=== PATIENT | male | born 1980 | race Caucasian/White ===

== ENCOUNTER 2016-12-29 22:27 | Inpatient (IN) ==
--- NOTE | 2016-12-29 22:52 | Emergency Department Note ---
Arrival - Arrival Chief Complaint: Abdominal / Flank Pain ED Nursing Triage Note: C/O RLQ abd pain/fever. onset this morning. Pt was seen at [facility] and transferred for further evaluation/admission for appendicitis. Pt was given Zosyn 3.375grams, Liter NS, Toradol, Morphine, Zofran and Tylenol Mode of Arrival: Stretcher Limitations: No Limitations Source: Patient Time Seen by Provider: 12/29/16 22:27 - History of Present Illness HPI Narrative: This 36-year-old white male presents with complaints of progressive right lower quadrant abdominal pain during the course of the morning of eventually precipitating his visit to [facility] where he was evaluated and found to have on CT acute appendicitis. Associated with that was a white count of 13, 300. The patient was subsequently transferred here for definitive therapy. Currently he rates his pain at 6 out of 10. He denies any nausea or vomiting. Currently he is medically stable. Onset (ago): hour(s) (Patient presents 18 hours after onset of symptoms) Allergies/Adverse Reactions: Allergies Allergy/AdvReac Type Severity Reaction Status Date / Time No Known Allergies Allergy Verified 01/27/15 16:23 Home Medications: Home Medications Medication Instructions Recorded Confirmed Type Citalopram [CeleXA] 20 mg PO DAILY 12/29/16 12/29/16 History Insulin Aspart [NovoLOG FlexPen] 15 unit SUBCUT DIRECTED 12/29/16 12/29/16 History Insulin Glargine [Lantus] 65 unit SUBCUT BEDTIME 12/29/16 12/29/16 History Lisinopril [Prinivil] 10 mg PO DAILY 12/29/16 12/29/16 History Review of System - Review of System 12 point system: reviewed and no additional remarkable complaints except as stated - Review of System Constitutional: Present: as per HPI Gastrointestinal: Present: as per HPI Medical,Surgical,& Family Hx - Medical History Cardio: History of: Hypertension Psychological: History of: Depression Neurology: History of: Peripheral Neuropathy No history of: Seizures HEENT: No history of: Dental Problems (UPPER DENTURES) Endocrine: History of: Diabetes Mellitus (IDDM), Dyslipidemia Musculoskeletal: History of: Amputation (left 5TH DIGIT ON FOOT last january, right 5th toe amputation) - Surgical History HEENT Surgeries: Surgical HX of: Eye Surgery (stigmatism) - Family History Family History: Reports;: Family Diabetes (father), Family Heart Disease ( mother had heart surgery) - Social History Smoking Status: Current every day smoker Frequency of Alcohol Use: None Type of Drug Use: None Exam Physical Examination: GENERAL: Well developed, well nourished white male in no acute distress. HEENT: Normocephalic. No trauma. Moist mucous membranes. EOMI. PERRLA. ENT NML NECK: Supple. No adenopathy. CARDIAC: Regular. No murmurs. Heart rate 120 CHEST: Clear to auscultation. No respiratory distress. O2 sat 96% ABDOMEN: Soft. Very tender right lower quadrant with hypoactive bowel sounds. EXTREMITIES: No trauma. Normal ROM. No pedal edema. SKIN: No diaphoresis. No rash. NEURO: Alert. Neuro intact no focal deficits. Vital Signs: Vital Signs Temperature 102.4 F H 12/29/16 22:27 Pulse Rate 121 H 12/29/16 22:27 Respiratory Rate 18 12/29/16 22:27 Blood Pressure 131/71 12/29/16 22:27 O2 Sat by Pulse Oximetry 96 12/29/16 22:27 Results - Labs Labs: [place] [facility] white blood cell count 13,300 hematocrit 43 glucose 162 BUN 11 creatinine 1.6 potassium 4.3 sodium 139 - Diagnostic Findings Procedure: CT: image reviewed by me, report reviewed by me (15 mm diameter appendix with inflammatory stranding of the jaleel-appendiceal fat consistent with acute appendicitis.)
[2016-12-29] MEDS ORDERED: GLUCAGON 1 MG VIAL IM PRN ×2 (22:58)
[2016-12-29] MEDS ORDERED: hydrALAZINE 20 MG/1 ML VIAL IV PRN (22:58)
[2016-12-29] MEDS ORDERED: DEXTROSE 50% 25 GM/50 ML SYRINGE IV PRN (22:58)
[2016-12-29] MEDS ORDERED: ONDANSETRON 4 MG/2 ML VIAL IV PRN (22:58)
[2016-12-29] MEDS ORDERED: DEXTROSE 50% 25 GM/50 ML VIAL IV PRN (22:58)
[2016-12-29] MEDS ORDERED: ACETAMINOPHEN 325 MG TABLET ONE (23:48)
[2016-12-29] MEDS ORDERED: ACETAMINOPHEN 325 MG TABLET PO ONE (23:48)
[2016-12-29] MEDS ORDERED: HYDROmorphone 2 MG/1 ML VIAL IV ONE (23:48)
[2016-12-29] MEDS ORDERED: HYDROmorphone 2 MG/1 ML VIAL ONE (23:49)
[2016-12-30] MEDS: INSULIN REGULAR 100 UNIT/ML SUBCUT SCH ×4 (00:44→17:42)
[2016-12-30] MEDS: LACTATED RINGERS 1,000 ML IV SCH ×2 (01:07→17:34)
[2016-12-30] MEDS: PIPERACILLIN/TAZOBACTAM 3,375 MG in SODIUM CHLORIDE 0.9% 100 ML IV SCH ×3 (01:07→16:54)
[2016-12-30] MEDS ORDERED: BUPIVACAINE MPF 0.25% /EPI 30 ML VIAL ONE (07:03)
[2016-12-30] MEDS ORDERED: LIDOCAINE 1%/EPI INJ 20 ML VIAL ONE (07:03)
[2016-12-30] MEDS ORDERED: TISSUE ADHESIVE 1 EACH APPLICATOR TOP ONE (07:03)
--- NOTE | 2016-12-30 10:32 | General Surg History&Physical ---
Assessment and Plan (1) Appendicitis Status: Acute Assessment and plan: This patient appears to have acute uncomplicated appendicitis on the CT report. I will obtain images ultimately to review this personally to ensure that this is an appropriate course of action but for now I am recommending nonoperative management given his recent intra-abdominal surgery with mesh placement. I feel that the friability of the adhesions in his abdomen would be risky and for this reason I have recommended a trial of antibiotics to see if we can treat his appendicitis nonoperatively. Certainly the fact that he is responded so quickly to antibiotics overnight is reassuring and we will continue to trend his labs and bowel rest for now and repeat his lab work tomorrow and follow his abdominal exams. He is aware that if he worsens on this treatment he still may require surgery and in the meantime we will get records from [facility] to find out the extent of the operation and the size of the mesh that was placed. The patient is understanding of this plan and he is agreeable to it. Current Visit: Yes History of Present Illness Chief complaint: Abdominal pain right lower quadrant History of present illness: Mr. Cedeno is a 36 year old male who was admitted to the hospital on transfer from [facility] for acute appendicitis. He had a fever and leukocytosis and CT proven appendicitis. His pain started 2 days ago. He says that he had a robotic assisted laparoscopic umbilical hernia repair with mesh 3 weeks ago at [facility] which sounds like it was pretty involved and had a fairly large piece of mesh put in. He was febrile overnight but he has stabilized and is now afebrile and feels much better with antibiotic therapy overnight. Home Medications Medication Instructions Recorded Confirmed Type Citalopram [CeleXA] 20 mg PO DAILY 12/29/16 12/29/16 History Insulin Aspart [NovoLOG FlexPen] 15 unit SUBCUT TID 12/29/16 12/30/16 History Insulin Glargine [Lantus] 65 unit SUBCUT BEDTIME 12/29/16 12/29/16 History Lisinopril [Prinivil] 10 mg PO DAILY 12/29/16 12/29/16 History Allergies Allergy/AdvReac Type Severity Reaction Status Date / Time No Known Allergies Allergy Verified 01/27/15 16:23 Medical,Surgical,& Family Hx - Medical History Cardio: History of: Hypertension Psychological: History of: Depression Neurology: History of: Peripheral Neuropathy No history of: Seizures HEENT: No history of: Dental Problems (UPPER DENTURES) Endocrine: History of: Diabetes Mellitus (IDDM), Dyslipidemia Musculoskeletal: History of: Amputation (left 5TH DIGIT ON FOOT last january, right 5th toe amputation) - Surgical History HEENT Surgeries: Surgical HX of: Eye Surgery (stigmatism) Abdominal Surgeries: Surgical HX of: Hernia Repair (umbilical hernia repair 2017 ) - Family History Family History: Reports;: Family Diabetes (father), Family Heart Disease ( mother had heart surgery, Father- MD), Family Hypertension (Father), Family Stroke (paternal grandmother, paternal grandfather), Additional Family History ( paternal grandmother- MD) - Social History Smoking Status: Current every day smoker Frequency of Alcohol Use: None Type of Drug Use: None Exam - Constitutional Vitals: Period Temp Pulse Resp BP Sys/[place] Pulse Ox Last 24 Hr 97.3 F-102.4 F 80-126 18-20 99-131/55-76 94-96 General appearance: no acute distress, over weight - Head Head exam: Present: normal inspection, normocephalic - Eye Eye exam: Present: EOMI Pupils: Present: DANYELLE - ENT ENT exam: Present: normal exam Mouth exam: Present: normal external inspection, normal voice - Neck Neck exam: Present: normal inspection, trachea midline - Respiratory Respiratory exam: Present: clear to auscultation bilaterally. Absent: accessory muscle use, chest wall tenderness - Cardiovascular Cardiovascular exam: Present: RRR. Absent: systolic murmur, tachycardia - GI/Abdominal GI/Abdominal exam: Present: normal bowel sounds, guarding, tenderness, soft, other (There is focal right lower quadrant tenderness with voluntary guarding but no rebound. There are no diffuse peritoneal signs. There are well-healed incisions over the left side of the abdomen robotic assisted laparoscopic trocar sites. Umbilical hernia repair looks intact.). Absent: rebound - Extremities Exam Extremities exam: Present: normal inspection, normal capillary refill - Back Exam Back exam: Present: normal inspection - Neurological Exam Neurological exam: Present: alert, oriented X3 Speech: Present: normal - Skin Skin exam: Present: normal color, warm - Constitutional Constitutional: Present: as per HPI - EENT Nose, mouth and throat: Present: as per HPI - Cardiovascular Cardiovascular: Present: as per HPI - Respiratory Respiratory: Present: as per HPI - Gastrointestinal Gastrointestinal: Present: as per HPI - Genitourinary Genitourinary: Present: as per HPI - Musculoskeletal Musculoskeletal: Present: as per HPI - Neurological Neurological: Present: as per HPI - Endocrine Endocrine: Present: as per HPI Hematologic/Lymphatic: Present: as per HPI Results - Diagnostic Findings Procedure: CT Abdomen and Pelvis: report reviewed by me (The CT report was reviewed. This looks like a case of uncomplicated appendicitis with no perforation. The images are not available for me to review and we are in the process of obtaining them.)
[2016-12-30] MEDS ORDERED: HYDROmorphone 2 MG/1 ML VIAL IV PRN (19:34)
[2016-12-30] MEDS ORDERED: KETOROLAC 30 MG/1 ML VIAL IV SCH (20:00)
[2016-12-30 20:57] VITALS: BP 125/80
--- NOTE | 2016-12-30 21:12 | Event Note ---
I was finishing up an emergency operation in the operating room when I was contacted by the patient's nurse that his pain medications had fallen off of his orders. He was requesting pain medication and I informed the nurse that I would be up to order the pain medications after I was finished with the operation through the circulating nurse in the OR. When I arrived on the floor I was informed by the patient's nurse that the patient had decided to leave AGAINST MEDICAL ADVICE. I went and talked with the patient and he was frustrated that his perception was that I was not doing anything to take care of him and he was under the impression that he was sent here from [place] for emergency surgery which he did not get. I tried to explain to the patient why I chose the treatment plan that I recommended but it was clear that he has lost his trust in me and was set on going to another facility. As best I can tell when I had seen the patient in the morning he was agreeable to the treatment plan and satisfied with our conversation and I have answered all of his questions. I was never contacted to come back and talk with the patient or his family and I was never informed that he was having any problems until I was contacted during that operation for request to refill pain medications. When I went back to the nurses station, the patient's mother had called and said that she wanted to speak with me. She was driving to the hospital from [place]. She wanted to know what was going on as far as my care for her son and I tried to explain to her the situation. She was frustrated that she says that I think come and talk to her after morning rounds but I was never contacted by the nurses or told that she was interested in speaking with me. I tried to explain her that I had discussed all this with her son and that he did improve significantly with antibiotic management overnight and that I thought that the best thing to do would be to get more information while treating him with antibiotics. This information would include his imaging from [place], which they did not send (the images were never sent on a CD), unfortunately, and also the operative report from [facility]. I had told the nurse this morning to try obtain the operative report and to get the images from the scans and [facility] but these were never obtained and I am not sure why this is the case. The patient's mother began threatening me and accusing me of not doing anything for her son over the phone and told me that she wanted to speak with me when she got here and take her son to another hospital. I went to take care of some other work around the hospital and after not hearing back from the nursing floor I called up to see what was going on with the patient. They told me that his mother was looking for me so I went to the floor to find her. By the time I got to the floor, the patient and his mother had left AGAINST MEDICAL ADVICE and gone to another hospital. This is a difficult situation because of the patient's recent surgery and I felt like the safest course of action would be antibiotics alone if he responded appropriately to this. This certainly seem to be the case in the morning when I saw him and his vital signs normalized with resolution of his fever very quickly and his exam was very reassuring as far as focal tenderness in the right lower quadrant that had improved overnight and no diffuse peritoneal signs or tenderness elsewhere. My plan was to treat him with antibiotics as long as he continued to improve and I did discuss the risk of perforation of his appendix with antibiotics alone but I thought this was outweighed by the benefit of avoiding an operation in a patient that had a recent surgery 3 weeks ago which could create increased complications with adhesions and also because of the uncertainty as far as the size of the piece of mesh that was then and the possibility of infecting the mesh by operating on him.
== END 2016-12-30 20:50 | disposition left against medical advice (07) | DRG 254 ==
LOC: EDUNIT# → EDBD → N.ED 22:27 → N.EDINP 22:56 → N.3E 23:53
PROVIDERS: ADMIT Surgery; ATTEND Surgery

== ENCOUNTER 2019-05-27 04:44 | Inpatient (IN) ==
[2019-05-27 05:27] LABS: Basophils % 0.4 % (0.0-0.8); Immature Granulocytes % 0.3 %; Immature Granulocytes Absolute 0.03 #; Lymphocytes # 1.3 10*3/uL (1.4-4.0); Lymphocytes % 11.6 % (21.2-54.2); Mean Corpuscular HGB Conc 34.1 GM/DL (32-36); Mean Corpuscular Volume 84.4 FL (87-102); Mean Platelet Volume 10.5 FL (9.6-12.0); Monocytes % 7.4 % (1.7-12.7); Neutrophils % 80.3 % (38.7-73.9); Platelet Count 384 T/CUMM (130-400); Red Blood Count 4.86 MC/CUMM (3.8-5.5); Red Cell Distribution Width 12.6 % (9.3-17.3); White Blood Count 11.2 T/CUMM (4-12)
[2019-05-27] MEDS ORDERED: VANCOMYCIN INJ 1,000 MG in SODIUM CHLORIDE 0.9% 250 ML IV STA (05:31)
[2019-05-27 05:48] LABS: Bilirubin,Total 0.4 MG/DL (0.2-1.0); Osmolality,Calculated 276.9 MOS/KG (273-304); Total Protein 8.6 G/DL (6.4-8.3)
[2019-05-27] MEDS ORDERED: INSULIN REGULAR 100 UNIT/ML IV STA (05:55)
[2019-05-27] MEDS ORDERED: HYDROmorphone 2 MG/1 ML VIAL ONE (05:59)
[2019-05-27] MEDS ORDERED: HYDROmorphone 2 MG/1 ML VIAL IV STA (06:35)
[2019-05-27] MEDS ORDERED: SODIUM CHLORIDE 0.9% 1,000 ML IV STA (07:48)
[2019-05-27] MEDS ORDERED: DEXTROSE 10% 250 ML BAG IV PRN (07:48)
[2019-05-27] MEDS ORDERED: GLUCAGON 1 MG VIAL IM PRN (07:48)
[2019-05-27] MEDS ORDERED: ACETAMINOPHEN 325 MG TABLET PO PRN (07:48)
[2019-05-27] MEDS ORDERED: DOCUSATE SODIUM 100 MG CAPSULE PO PRN (07:48)
[2019-05-27] MEDS ORDERED: ONDANSETRON 4 MG/2 ML VIAL IV PRN (07:48)
[2019-05-27 08:51] LABS: Risk Ratio 3.41; VLDL CHOLESTEROL 21.2 MG/DL
[2019-05-27] MEDS: PIPERACILLIN/TAZOBACTAM 3,375 MG in SODIUM CHLORIDE 0.9% 100 ML IV SCH ×2 (09:14→16:41)
[2019-05-27] MEDS: SODIUM CHLORIDE 0.9% 1,000 ML IV SCH (09:17)
[2019-05-27] MEDS: INSULIN REGULAR 100 UNIT/ML SUBCUT SCH ×4 (09:55→22:00)
[2019-05-27] MEDS: HYDROmorphone 2 MG/1 ML VIAL IV PRN ×2 (10:21→20:38)
[2019-05-27 17:24] LABS: Apearance,Urine CLEAR (Clear); Bilirubin,Urine Negative (Negative); Blood, Urine Small mg/dL (Negative); Glucose,Urine (UA) >=500 mg/dL (Negative); Hyaline Casts,Urine 4 /LPF (0-3); Ketones,Urine 5 mg/dL (Negative); Nitrite,Urine Negative (Negative); Protein,Urine 100 MG/DL; RBC,Urine 1 /HPF (0-4); Squamous Epithelial Cell,Urine Occasional /HPF (0-10); Urine Color Yellow (Yellow); Urine Specific Gravity 1.032 (1.001-1.035); Urine Urobilinogen < 2.0 EU/DL (0.2-1.0); WBC,Urine <1 /HPF (0-6)
[2019-05-28] MEDS: VANCOMYCIN INJ 1,500 MG in SODIUM CHLORIDE 0.9% 500 ML IV SCH ×2 (00:05→17:52)
[2019-05-28] MEDS: PIPERACILLIN/TAZOBACTAM 3,375 MG in SODIUM CHLORIDE 0.9% 100 ML IV SCH ×3 (02:10→16:29)
[2019-05-28] MEDS: HYDROmorphone 2 MG/1 ML VIAL IV PRN ×5 (04:45→22:03)
[2019-05-28 05:55] LABS: Basophils % 0.5 % (0.0-0.8); Hemoglobin 11.7 GM/DL (14.0-18.0); Immature Granulocytes % 0.4 %; Immature Granulocytes Absolute 0.03 #; Lymphocytes # 1.3 10*3/uL (1.4-4.0); Lymphocytes % 16.2 % (21.2-54.2); Mean Corpuscular HGB Conc 33.4 GM/DL (32-36); Mean Platelet Volume 10.7 FL (9.6-12.0); Monocytes % 10.1 % (1.7-12.7); Neutrophils % 72.8 % (38.7-73.9); Platelet Count 315 T/CUMM (130-400); Red Blood Count 4.07 MC/CUMM (3.8-5.5); Red Cell Distribution Width 12.6 % (9.3-17.3); White Blood Count 7.9 T/CUMM (4-12)
[2019-05-28 06:30] LABS: Calcium 8.2 MG/DL (8.5-10.1); Osmolality,Calculated 276.1 MOS/KG (273-304)
[2019-05-28] MEDS ORDERED: LIDOCAINE 1% 20 ML VIAL ONE (06:42)
[2019-05-28] MEDS ORDERED: ETOMIDATE 40 MG/20 ML VIAL IV ONE (07:52)
[2019-05-28] MEDS ORDERED: fentaNYL 100 MCG/2 ML VIAL ONE (07:52)
[2019-05-28] MEDS ORDERED: propofoL 200 MG/20 ML VIAL IV ONE (07:52)
[2019-05-28] MEDS ORDERED: SODIUM CHLORIDE 0.9% 100 ML IV ONE (07:52)
[2019-05-28] MEDS ORDERED: MIDAZOLAM 2 MG/2 ML VIAL ONE (07:52)
[2019-05-28] MEDS: INSULIN REGULAR 100 UNIT/ML SUBCUT SCH (08:55)
[2019-05-28] MEDS: SODIUM CHLORIDE 0.9% 1,000 ML IV SCH ×2 (10:07→20:02)
[2019-05-28 11:09] LABS: Basophils % 0.5 % (0.0-0.8); Hematocrit 32.8 VOL% (42.0-52.0); Hemoglobin 11.2 GM/DL (14.0-18.0); Immature Granulocytes % 0.1 %; Immature Granulocytes Absolute 0.01 #; Lymphocytes # 1.6 10*3/uL (1.4-4.0); Lymphocytes % 21.7 % (21.2-54.2); Mean Corpuscular HGB Conc 34.1 GM/DL (32-36); Mean Corpuscular Volume 85.2 FL (87-102); Mean Platelet Volume 10.1 FL (9.6-12.0); Monocytes % 9.6 % (1.7-12.7); Neutrophils % 68.1 % (38.7-73.9); Platelet Count 280 T/CUMM (130-400); Red Blood Count 3.85 MC/CUMM (3.8-5.5); Red Cell Distribution Width 12.7 % (9.3-17.3); White Blood Count 7.3 T/CUMM (4-12)
[2019-05-28] MEDS: INSULIN LISPRO 100 UNIT/ML SUBCUT SCH ×5 (12:42→22:04)
[2019-05-28] MEDS: INSULIN GLARGINE 100 UNIT/ML SUBCUT SCH (12:43)
[2019-05-28] MEDS: metFORMIN 500 MG TABLET PO SCH (16:29)
[2019-05-28] MEDS: ATORVASTATIN 80 MG TABLET PO SCH (22:04)
[2019-05-29] MEDS: HYDROmorphone 2 MG/1 ML VIAL IV PRN ×5 (01:44→21:25)
[2019-05-29] MEDS: PIPERACILLIN/TAZOBACTAM 3,375 MG in SODIUM CHLORIDE 0.9% 100 ML IV SCH (04:55)
[2019-05-29 05:45] LABS: Basophils # 0.1 10*3/uL (0.0-0.2); Basophils % 0.7 % (0.0-0.8); Hematocrit 34.3 VOL% (42.0-52.0); Hemoglobin 11.4 GM/DL (14.0-18.0); Immature Granulocytes % 0.3 %; Immature Granulocytes Absolute 0.02 #; Lymphocytes # 1.6 10*3/uL (1.4-4.0); Lymphocytes % 21.9 % (21.2-54.2); Mean Corpuscular HGB Conc 33.2 GM/DL (32-36); Mean Corpuscular Volume 86.6 FL (87-102); Mean Platelet Volume 10.4 FL (9.6-12.0); Monocytes % 11.9 % (1.7-12.7); Neutrophils % 65.2 % (38.7-73.9); Platelet Count 313 T/CUMM (130-400); Red Blood Count 3.96 MC/CUMM (3.8-5.5); Red Cell Distribution Width 12.5 % (9.3-17.3); White Blood Count 7.2 T/CUMM (4-12)
[2019-05-29 06:14] LABS: Calcium 8.3 MG/DL (8.5-10.1); Osmolality,Calculated 269.4 MOS/KG (273-304)
[2019-05-29] MEDS: SODIUM CHLORIDE 0.9% 1,000 ML IV SCH ×2 (07:04→13:41)
[2019-05-29] MEDS: INSULIN GLARGINE 100 UNIT/ML SUBCUT SCH (08:31)
[2019-05-29] MEDS: INSULIN LISPRO 100 UNIT/ML SUBCUT SCH ×7 (08:31→21:26)
[2019-05-29] MEDS: metFORMIN 500 MG TABLET PO SCH ×2 (08:32→17:03)
[2019-05-29] MEDS: PANTOPRAZOLE 40 MG TABLET PO SCH (08:32)
[2019-05-29] MEDS ORDERED: lisinopriL 5 MG TABLET PO SCH (09:00)
[2019-05-29] MEDS ORDERED: lisinopriL 2.5 MG TABLET PO SCH (09:00)
[2019-05-29] MEDS: SODIUM HYPOCHLORITE 0.25% IRRIG 473 ML BOTTLE TOP SCH (10:34)
[2019-05-29] MEDS: KETOCONAZOLE 2% CREAM 30 GM TUBE TOP SCH ×2 (13:58→21:27)
[2019-05-29] MEDS ORDERED: INSULIN ASPART U SUBCUT SCH (15:00)
[2019-05-29] MEDS ORDERED: ENOXAPARIN 40 MG/0.4 ML SYRINGE SUBCUT SCH (17:00)
[2019-05-29] MEDS: ATORVASTATIN 80 MG TABLET PO SCH (21:25)
[2019-05-30] MEDS: SODIUM CHLORIDE 0.9% 1,000 ML IV SCH (02:30)
[2019-05-30] MEDS: HYDROmorphone 2 MG/1 ML VIAL IV PRN ×2 (05:17→09:29)
[2019-05-30 05:39] LABS: Basophils % 0.8 % (0.0-0.8); Hematocrit 35.6 VOL% (42.0-52.0); Hemoglobin 11.9 GM/DL (14.0-18.0); Immature Granulocytes % 0.2 %; Immature Granulocytes Absolute 0.01 #; Lymphocytes # 1.1 10*3/uL (1.4-4.0); Lymphocytes % 22.6 % (21.2-54.2); Mean Corpuscular HGB Conc 33.4 GM/DL (32-36); Mean Platelet Volume 10.4 FL (9.6-12.0); Monocytes % 10.8 % (1.7-12.7); Neutrophils % 65.6 % (38.7-73.9); Platelet Count 323 T/CUMM (130-400); Red Blood Count 4.19 MC/CUMM (3.8-5.5); Red Cell Distribution Width 12.5 % (9.3-17.3)
[2019-05-30 06:08] LABS: Calcium 8.7 MG/DL (8.5-10.1); Osmolality,Calculated 271.8 MOS/KG (273-304)
[2019-05-30] MEDS: PANTOPRAZOLE 40 MG TABLET PO SCH (08:52)
[2019-05-30] MEDS: metFORMIN 500 MG TABLET PO SCH (08:53)
[2019-05-30] MEDS: INSULIN GLARGINE 100 UNIT/ML SUBCUT SCH (08:54)
[2019-05-30] MEDS: INSULIN LISPRO 100 UNIT/ML SUBCUT SCH ×4 (08:55→12:02)
[2019-05-30] MEDS: SODIUM HYPOCHLORITE 0.25% IRRIG 473 ML BOTTLE TOP SCH (08:56)
[2019-05-30] MEDS: KETOCONAZOLE 2% CREAM 30 GM TUBE TOP SCH (08:56)
[2019-05-30] MEDS ORDERED: lisinopriL 10 MG TABLET PO SCH (09:00)
[2019-05-30 12:05] VITALS: BP 170/95
== END 2019-05-30 11:32 | disposition home health service (06) | DRG 629 ==
LOC: EDUNIT# → EDBD → N.ED 04:44 → SUATTDRO 05:46 → N.EDINP 05:46 → N.2E 07:05
PROVIDERS: ADMIT Internal Medicine; ATTEND Family Medicine